=== PATIENT | male | born 1990 | race African-American/Black ===

== ENCOUNTER 2022-10-12 15:47 | Emergency (ER) | payer MEDICARE, SELFPAY ==
[2022-10-12 16:01] VITALS: BP 131/75; PULSE 104; RESP 16; TEMP 36.5; O2SAT 99; BMI 23.7
--- NOTE | 2022-10-12 16:36 | ED_ITS ---
HPI - General Adult General Time Seen by Provider: 16:36 Date Seen: 10/12/22 Chief complaint: Jaw Injury/Pain Stated complaint: Swelling in Jaw Time Seen by Provider: 10/12/22 16:16 Source: patient and RN notes reviewed Mode of arrival: ambulatory Limitations: no limitations History of Present Illness HPI narrative: Patient is a 32-year-old male coming in with increasing left facial swelling and possible fever overnight. He felt warm last night but did not have a thermometer to take his temperature. His face is becoming more swollen overnight. His pain is certainly not as bad as what it has been prior. He has had 2 dental procedures over the last few weeks. He states he had a molar removed on the left lower jaw, the left behind some wrote that they had to go back and get later as it became infected. His pain is not as bad as it was then. He states he could not even open his mouth, could not even chew. He is unsure of his immunization records but believes they should be in [place], states he has lived here his whole life. He did not contact the dentist today. Does have a follow-up appointment coming up with a dentist at some point. Patient states he has been icing most of the day. Related Data Home Medications Medication Instructions Recorded Confirmed No Known Home Medications 10/12/22 10/12/22 Allergies Allergy/AdvReac Type Severity Reaction Status Date / Time No Known Drug Allergies Allergy Verified 10/12/22 16:02 [facility] Social History Smoking Status: Current every day smoker Do you use any of these nicotine containing products: Vaping Products Second hand tobacco smoke exposure: No How often do you have a drink containing alcohol: monthly or less How many standard drinks containing alcohol do you have on a typical day: 1 or 2 How often do you have six or more drinks on one occasion: Never AUDIT-C Alcohol total score: 1 Non-prescribed substance use: denies use service: No Exam Const: Vital Signs, click to edit/add: Vital Signs - 24 hr 10/12/22 16:01 10/12/22 17:58 10/12/22 20:14 Temperature 97.7 F 98.7 F Pulse Rate [Pulse Oximeter] 104 H 82 90 Respiratory Rate 16 18 16 Blood Pressure [Le ft Upper Arm] 134/92 H 128/72 Blood Pressure [Ri ght Upper Arm] 131/75 Pulse Oximetry 99 97 99 Oxygen Delivery Me thod Room Air Room Air Room Air Documenting provider has reviewed patient's vital signs: yes Common normals: no apparent distress, average body habitus, oriented x3, no limitations, healthy appearing and alert General appearance: cooperative, comfortable, well kempt and well developed HENMT: Common normals: normocephalic, head/scalp atraumatic, hearing grossly normal bilaterally, external nose normal, nasal mucous membranes and turbinates normal, moist oral mucous membranes, oropharynx normal and dentition normal Head and scalp: normocephalic and atraumatic Nose: external nose normal and nasal mucous membranes and turbinates normal Other: Has swelling externally along the left jaw, no fluctuance. Is not that tender when I palpate. From his mouth, can palpate no areas of fluctuance, no areas of tenderness. There is no submental adenopathy, no cervical adenopathy. Eye: Common normals: PERRL, EOMs intact bilaterally, conjunctivae normal and no scleral icterus Conjunctiva: conjunctiva(e) normal Pupil: PERRL Neck & C-Spine: Common normals: full ROM, no lymphadenopathy, supple, no meningeal signs, no JVD and thyroid normal Thyroid: thyroid normal Resp: Common normals: normal respiratory effort and clear to auscultation bilaterally Auscultation: clear to auscultation bilaterally Cardio: Common normals: no JVD, regular rate, regular rhythm, S1 normal heart sound, S2 normal heart sound, no gallops, no clicks and no murmurs Rate: regular rate Rhythm: regular rhythm Heart sounds: S1 normal and S2 normal Neuro: Common normals: oriented x3 Sensorium/orientation: alert Meningeal signs: no meningeal signs Psych: Appearance: well kempt Course Course Hospital Course: Given his history, will proceed with imaging to see if there is any abscess or anything that requires any intervention. To achieve this we will do IV contrast soft tissue neck which will go through the lower jaw. Will also obtain some baseline labs. Reevaluation(s) Reevaluation #1: Reviewed with patient that the CT scan is showing some concerns of possible osteomyelitis. He really is not having any significant pain in his jaw. States sometimes he will be of little occasional sharp pain but overall the pain is not bad like it was before. He believes he was on amoxicillin before, he had this done at the [facility]. Will try to call up to the [facility]. Given that his white count is normal, he is currently afebrile and is not having significant pain, will start with IV Unasyn for cellulitis. He clinically just does not seem to have symptoms of osteomyelitis. He is wanting to go home. I have reviewed with him that is really important for his health and safety/well-being that we figure this out further. Will attempt to call the [facility] and see if we can make some outpatient arrangements. I do not feel that he needs hospitalization at this point. Will start IV antibiotics, I will plan on sending him out on Augmentin and likely discharge to home with outpatient follow-up. I have asked staff to try to contact the [facility]. Time: 18:59 Consultations Consultation #1: [facility] originally called ENT, spoke briefly with him and he directed us to contact oral/dental reimbursement liaison through . Spoke with oral surgeon on-call Dr. Arlen Corey. He will contact the patient tomorrow morning and get him back into clinic at [facility] 7th floor; plan is to see him tomorrow. He agreed from my description that he did not need hospitalization, will re- evaluate tomorrow. We are pushing the CT scan to them, have contacted radiology for this already. Vital Signs Vital signs: Initial Vital Signs Temperature 97.7 F 10/12/22 16:01 Temperature Source Temporal Artery Scan 10/12/22 16:01 Pulse Rate 104 H 10/12/22 16:01 Respiratory Rate 16 10/12/22 16:01 Blood Pressure 131/75 10/12/22 16:01 Blood Pressure Mean 93 10/12/22 16:01 Blood Pressure Position Sitting 10/12/22 16:01 Pulse Oximetry 99 10/12/22 16:01 Oxygen Delivery Method 10/12/22 16:01 Vital Signs Temperature 97.7 F 10/12/22 16:01 Pulse Rate 104 H 10/12/22 16:01 Respiratory Rate 16 10/12/22 16:01 Blood Pressure 131/75 10/12/22 16:01 Pulse Oximetry 99 10/12/22 16:01 Oxygen Delivery Method 10/12/22 16:01 Temperature 98.7 F 10/12/22 17:58 Pulse Rate 90 10/12/22 20:14 Respiratory Rate 16 10/12/22 20:14 Blood Pressure 128/72 10/12/22 20:14 Pulse Oximetry 99 10/12/22 20:14 Oxygen Delivery Method 10/12/22 20:14 Medical Decision Making Lab Data Lab results reviewed: Yes I reviewed the patient's lab results Labs: Lab Results 10/12/22 10/12/22 10/12/22 Range/Units 17:00 17:00 17:00 WBC 6.90 (4.50-11.00) K/uL RBC 5.24 (4.30-5.90) m/uL Hgb 15.0 (13.5-17.5) gm/dL Hct 44.0 (37.0-53.0) % MCV 84 (80-100) fL MCH 29 (26-34) pg MCHC 34 (32-36) gm/dL RDW Coeff of Keven 12.7 (11.5-15.5) % Plt Count 192 (140-440) K/uL Neut % (Auto) 52.3 (42.0-72.0) % Lymph % (Auto) 31.7 (20-44) % [place]house % (Auto) 12.5 H (0.0-11.0) % Eos % (Auto) 2.6 (0.0-7.0) % Baso % (Auto) 0.3 (0.0-3.0) % Neut # (Auto) 3.61 (1.7-7.0) K/uL Lymph # (Auto) 2.19 (0.90-2.90) K/uL Morehouse # (Auto) 0.90 (0.00-0.90) K/UL Eos # (Auto) 0.18 (0.00-0.50) K/uL Baso # (Auto) 0.02 (0.00-0.30) K/uL Abs Immat Gran (auto) 0.04 (0.00-0.30) K/uL Imm/Tot Granulo (auto) 0.6 % ESR 11 (2-15) mm/hr Sodium 141 (135-149) mmol/L Potassium 3.9 (3.6-5.1) mmol/L Chloride 106 (96-114) mmol/L Carbon Dioxide 26 (20-32) mmol/L BUN 11 (5-24) mg/dL Creatinine 1.1 (0.5-1.5) mg/dL Estimated Creat Clear 104.58 Estimated GFR 93 ml/min Glucose 91 (60-115) mg/dL Calcium 9.2 (8.4-10.6) mg/dL C-Reactive Protein 2.4 H (0.5-1.0) mg/dL Imaging Data CT- Other: Attestation: I have reviewed the pertinent imaging results. Radiologist's impression: Patient: DOMINGA TAMAYO Facility:?[facility] Patient ID:?[id number] Site Patient ID:?[id number]. Site :?[id number] Study:?CT ST Neck 83CC ISOVUE 370-10/12/2022 5:23:53 PM Ordering Physician:?Kenyatta Emmanuel Final Report: INDICATION: [place] tooth extraction. Evaluate for infection. TECHNIQUE: CT of the neck with 83 cc Isovue 370 iodinated contrast agent. Coronal and sagittal reconstructions are included. COMPARISON: None. FINDINGS: Postsurgical changes of bilateral mandibular 3rd molar tooth extraction. There is dehiscence of the left mandibular alveolar cortex with periosteal reaction along the left mandibular ramus. There is extensive swelling and inflammatory fat stranding throughout the left mandibular buccal space, left submandibular space and more superficial facial soft tissues. No organized fluid collection. Nasopharynx/oropharynx within normal limits. The supraglottic, glottic and infr aglottic larynx are normal. The airway including the trachea is normal and is patent. The parotid glands, submandibular and sublingual glands are normal in appearance. The thyroid gland is normal in appearance. The vascular structures opacify normally with contrast material. Visualized paranasal sinuses and mastoid air cells are clear. Visualized orbital and intracranial contents are normal. Supraclavicular regions, mediastinum and soft tissues of the imaged chest wall are normal. Visualized portions of the upper lungs are clear. IMPRESSION: 1. Postsurgical changes of bilateral mandibular 3rd molar tooth extraction. Left-sided mandibular destructive bony changes with periosteal reaction suspicious for osteomyelitis given the clinical history. There is extensive adjacent soft tissue cellulitis extending into the buccal, mandibular and superficial facial regions. No organized fluid collection. Please note that all CT scans at this facility use dose modulation, iterative reconstruction, and/or weight-based dosing when appropriate to reduce radiation dose to as low as reasonably achievable. Dictated by Steve Olsen MD @ 10/12/2022 6:03:24 PM (Electronic Signature) Critical Care Time Critical Care Time Critical Care Time: No Discharge Plan Discharge Clinical Impression: Cellulitis of intraoral region, Cellulitis of face Condition: Stable Instructions: Cellulitis (ED) Additional Instructions: Take the pill of Augmentin in the morning. You should be contacted by the [facility] oral surgery clinic tomorrow to be seen there, plan was for you to be evaluated in seen there tomorrow. If you have not heard from them by mid morning, would try to contact them. If you develop fever, have significant increased facial swelling or pain overnight, would proceed to the [facility] ED. if you should have any discomfort, can use Tylenol and ibuprofen per bottle directions. Prescriptions: No Action No Known Home Medications Stand Alone Forms: [employer]th Info Instructions
--- NOTE | 2022-10-12 16:42 | CRLHL7_ITS ---
For Patients: As a result of the Century Cures Act, medical imaging exams and procedure reports are released immediately into your electronic medical record. You may view this report before your referring provider. If you have questions, please contact your health care provider. INDICATION: [place] tooth extraction. Evaluate for infection. TECHNIQUE: CT of the neck with 83 cc Isovue 370 iodinated contrast agent. Coronal and sagittal reconstructions are included. COMPARISON: None. FINDINGS: Postsurgical changes of bilateral mandibular 3rd molar tooth extraction. There is dehiscence of the left mandibular alveolar cortex with periosteal reaction along the left mandibular ramus. There is extensive swelling and inflammatory fat stranding throughout the left mandibular buccal space, left submandibular space and more superficial facial soft tissues. No organized fluid collection. Nasopharynx/oropharynx within normal limits. The supraglottic, glottic and infraglottic larynx are normal. The airway including the trachea is normal and is patent. The parotid glands, submandibular and sublingual glands are normal in appearance. The thyroid gland is normal in appearance. The vascular structures opacify normally with contrast material. Visualized paranasal sinuses and mastoid air cells are clear. Visualized orbital and intracranial contents are normal. Supraclavicular regions, mediastinum and soft tissues of the imaged chest wall are normal. Visualized portions of the upper lungs are clear. IMPRESSION: 1. Postsurgical changes of bilateral mandibular 3rd molar tooth extraction. Left-sided mandibular destructive bony changes with periosteal reaction suspicious for osteomyelitis given the clinical history. There is extensive adjacent soft tissue cellulitis extending into the buccal, mandibular and superficial facial regions. No organized fluid collection. Please note that all CT scans at this facility use dose modulation, iterative reconstruction, and/or weight-based dosing when appropriate to reduce radiation dose to as low as reasonably achievable. Dictated by Steve Olsen MD @ 10/12/2022 6:03:24 PM (Electronically Signed)
[2022-10-12 17:10] LABS: Basophils Absolute Auto 0.02 K/uL (0.00-0.30); Basophils Percent Auto 0.3 % (0.0-3.0); Eosinophils Absolute Auto 0.18 K/uL (0.00-0.50); Eosinophils Percent Auto 2.6 % (0.0-7.0); Immature Granulocytes Abs Auto 0.04 K/uL (0.00-0.30); Immature Granulocytes Pct Auto 0.6 %; Lymphocytes Absolute Auto 2.19 K/uL (0.90-2.90); Lymphocytes Percent Auto 31.7 % (20-44); Mean Corpuscular HGB Conc 34 gm/dL (32-36); Mean Corpuscular Hemoglobin 29 pg (26-34); Mean Corpuscular Volume 84 fL (80-100); Monocytes Percent Auto 12.5 % (0.0-11.0); Neutrophils Absolute Auto 3.61 K/uL (1.7-7.0); Neutrophils Percent Auto 52.3 % (42.0-72.0); Platelet Count* 192 K/uL (140-440); RDW Coefficient of Variation % 12.7 % (11.5-15.5); Red Blood Count 5.24 m/uL (4.30-5.90)
[2022-10-12 17:17] LABS: Chloride* 106 mmol/L (96-114); Sodium* 141 mmol/L (135-149)
[2022-10-12 17:18] LABS: Potassium* 3.9 mmol/L (3.6-5.1)
[2022-10-12 17:20] LABS: Creatinine* 1.1 mg/dL (0.5-1.5); Est. Creatinine Clearance* 104.58; Estimated Glomerular Filt Rate 93 ml/min
[2022-10-12 17:21] LABS: Blood Urea Nitrogen* 11 mg/dL (5-24); Calcium* 9.2 mg/dL (8.4-10.6); Carbon Dioxide* 26 mmol/L (20-32); Glucose* 91 mg/dL (60-115)
[2022-10-12 17:24] LABS: C Reactive Protein* 2.4 mg/dL (0.5-1.0)
[2022-10-12 17:31] LABS: Slide Review Reflex No
[2022-10-12 17:58] VITALS: BP 134/92; PULSE 82; RESP 18; TEMP 37.1; O2SAT 97
[2022-10-12] MEDS: AMPICILLIN/SULBACTAM 3 GM in 0.9 % SODIUM CHLORIDE Mini-bag 100 ML IVPB (19:23)
[2022-10-12 19:47] LABS: Erythrocyte SedimentationRate* 11 mm/hr (2-15)
[2022-10-12 20:14] VITALS: BP 128/72; PULSE 90; RESP 16; O2SAT 99
[2022-10-12] MEDS: AMOXICILLIN/CLAVULANATE 875 mg/125 mg TABLET PO (20:15)
== END 2022-10-12 20:17 | disposition home or self-care (01) ==
PROVIDERS: Emergency Provider Family Medicine
DX: L03.211 Cellulitis of face (principal); K12.2 Cellulitis and abscess of mouth
CPT/HCPCS: 36415; 70491; 80048; 85025; 85651; 86140; 96365; 99284; A9270; J0295; Q9967

== ENCOUNTER 2024-04-13 15:41 | Emergency (ER) | payer MEDICARE, SELFPAY ==
[2024-04-13 15:54] VITALS: BP 121/75; PULSE 93; RESP 18; TEMP 37.6; O2SAT 97; BMI 24.5
--- NOTE | 2024-04-13 16:32 | ED.WOUNDLAC ---
HPI - Wound/Laceration General Date Seen: 04/13/24 Chief Complaint: Laceration/Wound Stated Complaint: Stiches coming apart R knuckle Time Seen by Provider: 04/13/24 15:58 Source: patient and family Mode of arrival: ambulatory Limitations: no limitations History of Present Illness HPI narrative: Patient is a very nice 33-year-old gentleman who presents here for evaluation of sutures idea placed 2 days ago on his right 4th knuckle. He feels that the sutures a can a coming apart, he is worried that it will heal funny. Or put him at more risk for infection. The sutures were not done here. He has replaced up in the [place]. And he was doing door-down here. So he thought he would come in and be seen. Patient tetanus UTD: Yes Related Data Home Medications ?Medication ?Instructions ?Recorded ?Confirmed No Known Home Medications 10/12/22 10/12/22 Allergies Allergy/AdvReac Type Severity Reaction Status Date / Time No Known Drug Allergies Allergy Verified 10/12/22 16:02 Review of Systems Status of ROS: Reports: 6 or more systems reviewed and unremarkable except as noted in History and below PFSH PFS Social History Smoking Status: Current every day smoker Do you use any of these nicotine containing products: Vaping Products Second hand tobacco smoke exposure: No How often do you have a drink containing alcohol: monthly or less How many standard drinks containing alcohol do you have on a typical day: 1 or 2 How often do you have six or more drinks on one occasion: Never AUDIT-C Alcohol total score: 1 Non-prescribed substance use: denies use service: No Exam Narrative: Exam Narrative: On examination there is 3 stitches placed vertically along his right 4th PIP joint. There is maybe a mm between the upper part of the stitch. The dermal layer however underneath this well together. It is just the epidermis this plate apart slightly. When he flexes it this is seen, when he extends it is not. Cap refills normal sensations normal no evidence of infection swelling or redness Const: Vital Signs, click to edit/add: Vital Signs - 24 hr 04/13/24 15:54 Temperature 99.6 F Pulse Rate [Pulse Oximeter] 93 Respiratory Rate 18 Blood Pressure [Ri ght Upper Arm] 121/75 Pulse Oximetry 97 Oxygen Delivery Me thod Room Air Documenting provider has reviewed patient's vital signs: yes Course Course ED Course: I gave him baseball splint that will hold his finger in position of comfort. Some Coban was applied his sutures should come out in 9 days from now. I reassured him that this will heal up fine. He was comfortable with this. Vital Signs Vital signs: Initial Vital Signs Temperature 99.6 F 04/13/24 15:54 Temperature Source Temporal Artery Scan 04/13/24 15:54 Pulse Rate 93 04/13/24 15:54 Respiratory Rate 18 04/13/24 15:54 Blood Pressure 121/75 04/13/24 15:54 Blood Pressure Mean 90 04/13/24 15:54 Pulse Oximetry 97 04/13/24 15:54 Oxygen Delivery Method Room Air 04/13/24 15:54 Vital Signs Temperature 99.6 F 04/13/24 15:54 Pulse Rate 93 04/13/24 15:54 Respiratory Rate 18 04/13/24 15:54 Blood Pressure 121/75 04/13/24 15:54 Pulse Oximetry 97 04/13/24 15:54 Oxygen Delivery Method Room Air 04/13/24 15:54 Temperature 99.6 F 04/13/24 15:54 Pulse Rate 93 04/13/24 15:54 Respiratory Rate 18 04/13/24 15:54 Blood Pressure 121/75 04/13/24 15:54 Pulse Oximetry 97 04/13/24 15:54 Oxygen Delivery Method Room Air 04/13/24 15:54 Discharge Plan Discharge Clinical Impression: Feared condition not demonstrated, Laceration Patient Disposition: Home, Self-Care Condition: Stable Additional Instructions: As I explained no need to worry the outer epidermis later, this layer does not actually meldtogether. It is the under layer dermal layer that does. A brace would help this. We will give you a brace wear this for the next week. Then I would take this off. Watch for signs of infection such as redness swelling or other issues. Sutures should come out in 10 days. Activity Level: Light activity Prescriptions: No Action No Known Home Medications Follow Up/Referrals: Provider,Not a Local [Primary Care Provider] - Stand Alone Forms: [facility] Info Instructions
== END 2024-04-13 16:38 | disposition home or self-care (01) ==
LOC: ED 16:29
PROVIDERS: Emergency Provider Family Medicine
DX: S61.214A Laceration without foreign body of right ring finger without damage to nail, initial encounter (principal); Z71.1 Person with feared health complaint in whom no diagnosis is made
CPT/HCPCS: 99282; 99283

== ENCOUNTER 2025-11-07 15:22 | Outpatient (CLI) | payer MEDICARE, SELFPAY ==
[2025-11-07 17:50] LABS: Chlamydia DNA Amplified* NOT DETECTED (No Detected)
[2025-11-07 20:37] LABS: GC DNA Amplified* DETECTED (No Detected)
== END 2025-11-07 15:23 | disposition home or self-care (01) ==
LOC: NFLDUCREF 15:22
PROVIDERS: Visit Provider Nurse Practitioner Family
DX: Z11.3 Encounter for screening for infections with a predominantly sexual mode of transmission (principal)
CPT/HCPCS: 87086; 87491; 87591